=== PATIENT | female | born 1995 | race Two or more races ===

== ENCOUNTER 2016-11-11 10:08 | Emergency (ER) | payer MEDICAID ==
[~2016-11-11] VITALS: Ht 144.8 cm; Wt 75.3 kg
[~2016-11-11 10:08] MED LIST: GLYB1POW; IBUP800T24 PO; JANUVIA; METF500T; SULF1TAB60 PO
[2016-11-11 11:09] LABS: Urine Bilirubin Negative (Negative); Urine Blood TRACE /uL (Negative); Urine Color Yellow (Yellow); Urine Nitrite Negative (Negative); Urine RBC 1 /hpf (0 - 4); Urine Squamous Epithelial Cell FEW /hpf (<5); Urine Urobilinogen Normal (Negative)
[2016-11-11 11:10] LABS: Urine Glucose 4+ mg/dL (Normal); Urine Ketone 2+ (Negative)
[2016-11-11 11:22] VITALS: BP 140/88
== END 2016-11-11 11:55 | disposition home or self-care (01) ==
LOC: ER 10:11
DX: N39.0 Urinary tract infection, site not specified (principal); E11.9 Type 2 diabetes mellitus without complications
CPT/HCPCS: 81001; 81025; 87086

== ENCOUNTER 2017-06-09 14:05 | Emergency (ER) | payer MEDICAID ==
[~2017-06-09] VITALS: Ht 160 cm; Wt 75.3 kg
[2017-06-09 14:08] VITALS: BP 130/92
[2017-06-09] MEDS ORDERED: cefTRIAXone SOD 1,000 MG VL IM ONE (16:15)
== END 2017-06-09 16:32 | disposition home or self-care (01) ==
LOC: ER 14:05
DX: E11.621 Type 2 diabetes mellitus with foot ulcer (principal)
CPT/HCPCS: 96372; 99283; J0696

== ENCOUNTER 2017-10-25 12:04 | Emergency (ER) | payer MEDICAID ==
[~2017-10-25] VITALS: Ht 152.4 cm; Wt 73.5 kg
[2017-10-25] MEDS ORDERED: IBUPROFEN 600 MG TAB PO ONE ×2 (12:51→13:00)
[2017-10-25 14:39] LABS: Basophils # (auto) 0.1 uL; Basophils % (auto) 0.6 % (0.0-2.0); Eosinophils # (auto) 0 uL; Hematocrit 44.3 % (36.0-46.0); Hemoglobin 15.4 g/dL (12.2-16.2); Lymphocytes # (auto) 0.6 uL; Lymphocytes % (auto) 4.7 % (10.0-50.0); Mean Corpuscular Hemoglobin 29.7 pg (28.0-32.0); Mean Corpuscular Hgb Conc. 34.9 g/dL (32.0-36.0); Mean Corpuscular Volume 85.4 fL (80.0-100.0); Monocytes % (auto) 8.6 % (0.0-12.0); Neutrophils # (auto) 10.5 uL; Neutrophils % (auto) 86.1 % (37.0-80.0); Nucleated Red Blood Cells % 0.2 %; Platelet Count (auto) 125 10^3/uL (140-450); Red Blood Cells 5.19 10^6/uL (4.0-5.20); Red Cell Distribution Width 13.6 % (11.8-14.3); White Blood Cell 12.2 10^3/uL (4.4-10.8)
[2017-10-25 15:04] LABS: Albumin 2.7 g/dL (3.4-5.0); BUN/Creatinine Ratio 36.1; Calcium 8.3 mg/dL (8.5-10.1); Potassium 4.6 mmol/L (3.5-5.1); Total Protein 7.5 g/dL (6.4-8.2)
[2017-10-25 16:40] VITALS: BP 100/73
== END 2017-10-25 15:47 | disposition home or self-care (01) ==
LOC: ER 12:04
DX: N39.0 Urinary tract infection, site not specified (principal); E11.65 Type 2 diabetes mellitus with hyperglycemia
CPT/HCPCS: 36415; 80053; 81025; 82962; 85025

== ENCOUNTER 2019-03-04 17:48 | Emergency (ER) | payer MEDICAID ==
[~2019-03-04] VITALS: Ht 152.4 cm; Wt 75.3 kg
[2019-03-05 02:03] VITALS: BP 138/87
== END 2019-03-05 03:57 | disposition left against medical advice (07) ==
LOC: ER 17:48
DX: M79.671 Pain in right foot (principal); M79.672 Pain in left foot; Z53.21 Procedure and treatment not carried out due to patient leaving prior to being seen by health care provider
CPT/HCPCS: 73610